=== PATIENT | female | born 1980 | race African-American/Black ===

== ENCOUNTER 2016-08-06 20:19 | Emergency (ER) | payer OTHER ==
[~2016-08-06] VITALS: Ht 160 cm; Wt 81.7 kg
[2016-08-06] MEDS ORDERED: CYCLOBENZAPRINE5 MG PO (21:04)
[2016-08-06] MEDS ORDERED: MOBIC15 MG PO (21:04)
[2016-08-06] MEDS ORDERED: DELTASONE20 MG PO (21:04)
[2016-08-06 21:38] VITALS: BP 126/87
== END 2016-08-06 21:39 | disposition home or self-care (01) ==
LOC: ER 20:19
DX: M51.26 Other intervertebral disc displacement, lumbar region (principal); J45.909 Unspecified asthma, uncomplicated; Z86.2 Personal history of diseases of the blood and blood-forming organs and certain disorders involving the immune mechanism